=== PATIENT | female | born 1930 | race Caucasian/White ===

== ENCOUNTER → 2016-10-11 | Outpatient (CLI) | payer MEDICARE, OTHER ==
[~2016-10-11] MED LIST: AMLO5 PO; APIXABAN; HYDR-3580 PO; IRBE1TAB39 PO; TOPR50TA PO
[2016-10-11 12:42] LABS: HEMATOCRIT 32.1 % (35.0-46.0); MEAN CORPUSCULAR HEMOGLOBIN 30.1 PG (27.0-34.0); MEAN CORPUSCULAR HGB CONC 34.5 % (32.0-36.0); PLATELET COUNT 128 TH/MM3 (150-450); RED BLOOD COUNT 3.69 MIL/MM3 (4.00-5.30); RED CELL DISTRIBUTION WIDTH 13.3 % (11.6-17.2); REVIEW FLAG FINAL; WHITE BLOOD COUNT 3.7 TH/MM3 (4.0-11.0)
[2016-10-11 12:59] LABS: ANION GAP 9 MEQ/L (5-15); BICARBONATE 27.4 MEQ/L (21.0-32.0); BLOOD UREA NITROGEN 24 MG/DL (7-18); CHLORIDE 104 MEQ/L (98-107); GLUCOSE,FASTING 89 MG/DL (74-99); POTASSIUM 3.7 MEQ/L (3.5-5.1); SODIUM (NA) 140 MEQ/L (136-145)
[2016-10-11 13:07] LABS: ALKALINE PHOSPHATASE 52 U/L (45-117); ALT (GPT) 19 U/L (10-53); AST (GOT) 23 U/L (15-37); GLOMERULAR FILTRATION RATE 56 ML/MIN (>89); HDL CHOLESTEROL 100.3 MG/DL (40.0-60.0); LDL CHOLESTEROL 98 MG/DL (0-99); TOTAL BILIRUBIN ADULT 0.5 MG/DL (0.2-1.0)
== END ==
LOC: PLAB 09:23
PROVIDERS: ATTEND Family Medicine
DX: I10 Essential (primary) hypertension (principal); E78.4 Other hyperlipidemia; C44.329 Squamous cell carcinoma of skin of other parts of face; I48.0 Paroxysmal atrial fibrillation
CPT/HCPCS: 36415; 80053; 80061; 84443; 85027